=== PATIENT | female | born 1945 | race Caucasian/White ===

== ENCOUNTER 2022-05-22 16:45 | Inpatient (IN) | payer MEDICARE, OTHER ==
[~2022-05-22] VITALS: Ht 165.1 cm; Wt 72.6 kg
[2022-05-22] MEDS ORDERED: LORAZEPAM 0.5 MG TABLET PO PRN (17:30)
[2022-05-22] MEDS ORDERED: ZOLPIDEM TARTRATE 5 MG TABLET PO PRN (17:30)
[2022-05-22] MEDS ORDERED: ACETAMINOPHEN 325 MG TABLET PO PRN (17:30)
[2022-05-22] MEDS ORDERED: BLOOD SUGAR DIAGNOSTIC 1 EACH STRIP IN ONE (17:30)
[2022-05-22] MEDS ORDERED: MAGNESIUM HYDROXIDE 30 ML UDC PO PRN (17:30)
[2022-05-22] MEDS ORDERED: MAG HYDROX/AL HYDROX/SIMETH 30 ML UDC PO PRN (17:30)
--- NOTE | 2022-05-22 17:30 | NUR ---
PT HAS HX OF BREAST CANCER RIGHT (MASTECTOMY ),CERVICAL SPINE PAIN,CHICKEN POX,HTN ,LITHUANIAN MEASLES ,ARTHRITIS RADIATION THERAPY ,HYPERLIPIDEMIA ,PNEUMONIA.
--- NOTE | 2022-05-22 17:30 | NUR ---
ADMITTED THIS 76 Y/O FEMALE PATIENT ADMIT FROM [facility] , ADMITTED TO [facility] ON 5150 HOLD FOR GD , PER HOLD GRAVELY DISABLE BROUGHT INTO EMERGENCY DEPT DUE TO PSYCHIATRIC DECOMPENSATION .PT IRRITABLE ,PARANOID AND VERY DISORGANIZED HX OF SCHIZOPHRENIA IS UNABLE TO FORMULATE A PLAN FOR SELF CARE . UPON FACE TO FACE ASSESSMENT PT. IS POOR HISTORIAN, POOR INSIGHT ,POOR JUDGEMENT , EASILY EASILY AGITATED ,PREOCCUPIED WITH HER OWN THOUGHTS .PT IS LOUD AND UNCOOPERATIVE, PT STATED "I FEEL VERY DEPRESSED " ,PT BEHAVIOR PARANOID WITH SUSPICIOUS BEHAVIOR . PT. REFUSED TO SIGNS ADMISSION CONSENT PAPERS REFUSED SKIN ASSESSMENT AND REFUSED MRSA SWAB DUE TO MENTAL STATUS , BOTH MD AWARE AND NOTIFIED OF THE ADMISSION, BELONGINGS CONTRABAND WERE DONE , NURSING ASSESSMENT DONE ,PT. RIGHTS HAND BOOK GIVEN AND EXPLAIN TO PATIENT ABLE TO VERBALIZE UNDERSTANDING , MEDICATIONS GUIDE GIVEN AND EXPLAINED TO PATIENT , ENVIRONMENTAL SAFETY CHECK DONE, ENCOURAGED PT. VERBALIZED ANY FEELING CONCERN TO STAFF, ORIENT TO UNIT POLICY, NO ACUTE DISTRESS NOTED,VITAL SIGNS WNL ,BP 105/72 , P 98 T98,R 20 ,O2 SAT 97%,DENIES ANY PAIN AT THIS TIME,WILL CONTINUE TO MONITOR FOR Q15 SAFETY AND BEHAVIOR.
--- NOTE | 2022-05-22 17:30 | NUR ---
RN-CO: DR BHATTI WAS NOTIFIED AND GAVE ADMITTING ORDERS NOTED AND CARRIED OUT.
[2022-05-22] MEDS ORDERED: ERGO500093 PO (17:44)
[2022-05-22] MEDS ORDERED: ESOM40CA52 PO (17:44)
[2022-05-22] MEDS ORDERED: THIO2CAP2 PO (17:44)
[2022-05-22] MEDS ORDERED: LOSA50TA39 PO (17:44)
[2022-05-22] MEDS ORDERED: ANAS1TAB50 PO (17:44)
[2022-05-22] MEDS ORDERED: MECL-159 PO (17:44)
[2022-05-22] MEDS ORDERED: ACET-2605 PO (17:44)
[2022-05-22] MEDS ORDERED: CELE100C98 PO (17:44)
[2022-05-22] MEDS ORDERED: IBUP-2383 PO (17:44)
[2022-05-22 18:07] VITALS: BP 105/72
[2022-05-22 20:00] VITALS: BP 124/56
[2022-05-23] MEDS ORDERED: MECLIZINE HCL 25 MG TABLET PO PRN
[2022-05-23 07:17] LABS: CHOLESTEROL 247 mg/dL (<200); HDL CHOLESTEROL 69 mg/dL (40-60); LDL 145 mg/dL (0-99); TRIGLYCERIDES 209 mg/dL (30-150)
[2022-05-23 07:33] LABS: ALBUMIN 2.9 g/dL (3.4-5.0); BILIRUBIN,TOTAL 0.2 mg/dL (0.2-1.0); CALCIUM, SERUM 8.5 mg/dL (8.5-10.1); CREATININE 0.8 mg/dL (0.6-1.3); POTASSIUM 3.7 mmol/L (3.5-5.1); TOTAL PROTEIN, SERUM 5.9 g/dL (6.4-8.2)
[2022-05-23 08:00] VITALS: BP 116/69
[2022-05-23] MEDS ORDERED: IBUPROFEN 200 MG TABLET PO PRN (08:00)
[2022-05-23] MEDS: CELECOXIB 100 MG CAPSULE PO SCH ×2 (08:38→16:21)
[2022-05-23] MEDS: ANASTROZOLE 1 MG TABLET PO SCH (08:38)
[2022-05-23] MEDS: LOSARTAN POTASSIUM 50 MG TABLET PO SCH (08:38)
[2022-05-23] MEDS: PANTOPRAZOLE 40 MG TABLET.DR PO SCH (08:38)
--- NOTE | 2022-05-23 09:55 | NUR ---
BRITANY Clinical Note: Pt placed on a 5150 hold for GD. Per hold, it states that pt has been irritable and paranoid and collateral was unable to be collected. Pt has history of schizophrenia. Pt unable to care for self. Pt currently resides at home located at [facility]/[address] [place] [address]; ([phone]). Pt would want to return back home upon discharge.
--- NOTE | 2022-05-23 09:55 | NUR ---
BRITANY Initial Discharge Plan: Pt currently resides at home located at [address] [place] [address]; ([phone]). Pt would want to return back home upon discharge. BRITANY will work with the MD, treatment team, and pt to help coordinate appropriate discharge.
--- NOTE | 2022-05-23 10:00 | NUR ---
RN Notes: Received pt. asleep in bed, breathing is even and unlabored. Ate 90% for breakfast and compliant on meds. Pt. is suspicious, isolates in room and easily got irritated. Encouraged to verbalize feelings and motivated to attend group activity. Needs attended and will continue to monitor for safety.
--- NOTE | 2022-05-23 10:15 | NUR ---
SW Note: Pt did not allow this health science writer to contact her significant other Allen ([phone]).
[2022-05-23] MEDS ORDERED: THIOTHIXENE 5 MG CAPSULE PO SCH (11:00)
[2022-05-23] MEDS: OLANZAPINE 2.5 MG TABLET PO SCH ×2 (11:46→21:13)
[2022-05-23 16:00] VITALS: BP 140/67
--- NOTE | 2022-05-23 19:30 | NUR ---
GPS RN NOTE, RECEIVED PATIENT AWAKE AND IN BED, NO S/S OR COMPLAINTS OF PAIN AT THIS TIME. PATIENT IS DISPLAYING NO S/S OF APPARENT DISTRESS AT THIS TIME. PATIENT BREATHING IS UNLABORED WITH EQUAL RISE AND FALL OF THE CHEST. PATIENT IS ALERT AND ORIENTED X 3 ON ROOM AIR WITH A SPO2 98%. PATIENT IS COMPLIANT WITH MEDICATIONS, ANXIOUS, PARANOID, SUSPICIOUS, MAKES NEEDS KNOWN, AND IS COOPERATIVE. PATIENT DENIES SUICIDAL AND HOMICIDAL IDEATIONS AT THIS TIME. PATIENT ASSISTED WITH TURNING AND REPOSITIONING Q2HR AND PRN FOR COMFORT AND CIRCULATION. PATIENT HAS NO NEEDS AT THIS TIME. PATIENT EDUCATED ON THE USE OF THE CALL GREER. PATIENT BED SIDE RAILS UP X 2 FOR SAFETY. PATIENT BED IS LOCKED, LOW, WITH BED ALARM ON. WILL CONTINUE TO MONITOR THIS PATIENT Q15 MINUTES WITH THE HELP OF STAFF TO MAINTAIN SAFETY.
[2022-05-23 20:00] VITALS: BP 136/79
--- NOTE | 2022-05-23 20:27 | NUR ---
GPS RN NOTE, PATIENT HAS A COMPLAINT OF A CHRONIC COUGH AND IS REQUESTING ROBITUSSIN AT THIS TIME. PATIENT VITAL SIGNS ARE STABLE. PAGED [facility] AND INFORMED ROSA FUENTES DNP OF MY FINDINGS. ROSA FUENTES DNP ORDERED ROBITUSSIN DM 5ML PO Q6HR PRN. ALL ORDERS NOTED AND CARRIED OUT WILL CONTINUE TO MONITOR THIS PATIENT WITH THE HELP OF STAFF.
[2022-05-23] MEDS: GUAIFENESIN/D-METHORPHAN HB 5 ML UDC PO PRN (21:13)
--- NOTE | 2022-05-23 21:13 | NUR ---
GPS RN NOTE, PATIENT HAS A COMPLAINT OF A CHRONIC COUGH AND IS REQUESTING ROBITUSSIN AT THIS TIME. PATIENT VITAL SIGNS ARE STABLE. GAVE ROBITUSSIN DM 5ML 1 UNIT DOSE PO Q6HR PRN ORDERED. WILL CONTINUE TO MONITOR THIS PATIENT WITH THE HELP OF STAFF.
[2022-05-24 08:00] VITALS: BP 118/65
[2022-05-24] MEDS: ANASTROZOLE 1 MG TABLET PO SCH (08:12)
[2022-05-24] MEDS: GUAIFENESIN/D-METHORPHAN HB 5 ML UDC PO PRN ×2 (08:12→21:09)
[2022-05-24] MEDS: LOSARTAN POTASSIUM 50 MG TABLET PO SCH (08:12)
[2022-05-24] MEDS: CELECOXIB 100 MG CAPSULE PO SCH ×2 (08:12→16:13)
[2022-05-24] MEDS: PANTOPRAZOLE 40 MG TABLET.DR PO SCH (08:12)
--- NOTE | 2022-05-24 08:21 | NUR ---
Pt. seen and examined by Dr. Marin and ordered podiatry consult.
[2022-05-24] MEDS: OLANZAPINE 2.5 MG TABLET PO SCH ×2 (08:48→21:09)
[2022-05-24] MEDS: ERGOCALCIFEROL (VITAMIN D 2) 50,000 UNIT CAPSULE PO SCH (08:48)
--- NOTE | 2022-05-24 09:55 | NUR ---
RN Notes: Received pt awake in bed, responsive to staffs and suspicious. Ate 100% for breakfast, compliant on meds. Pt. seen by both psych and medical doctors. Pt. is complaining on coughing and prn med given. pt. keeps to self, needy and easily got irritated. Encouraged to verbalize feelings and motivated to attend group activity. Needs attended and will continue to monitor for safety.
--- NOTE | 2022-05-24 12:43 | NUR ---
Called Dr. Heath at [phone] for the podiatry consult. Per physician she will see pt. on Friday.
--- NOTE | 2022-05-24 14:03 | NUR ---
SW Note: Pt allowed for this service writer to contact her significant other Allen and gave his number ([phone]).
--- NOTE | 2022-05-24 14:03 | NUR ---
BRITAYN Family: BRITANY spoke with patient's significant other Allen ([phone]) and notified of admission and discussed treatment/discharge plan. He is aware and agreeable of treatment. He stated that he will be visiting pt tomorrow 05/25/2022 at the hospital.
--- NOTE | 2022-05-24 14:13 | NUR ---
SW Note: After pt speaking to her she stated that she is feeling unsafe. SW spoke with Allen ([phone]) and reassured that she is safe. Pt became paranoid and agitated towards this writer technical publications and stated "I feel scared of marriage and family social worker". SW questioned why she feels unsafe she stated that she feels unsafe near social workers and that "I was going to become a marriage and family social worker".
[2022-05-24 16:00] VITALS: BP 127/73
--- NOTE | 2022-05-24 19:30 | NUR ---
GPS RN NOTE, RECEIVED PATIENT AWAKE AND IN BED, NO S/S OR COMPLAINTS OF PAIN AT THIS TIME. PATIENT IS DISPLAYING NO S/S OF APPARENT DISTRESS AT THIS TIME. PATIENT BREATHING IS UNLABORED WITH EQUAL RISE AND FALL OF THE CHEST. PATIENT IS ALERT AND ORIENTED X 3 ON ROOM AIR WITH A SPO2 96%. PATIENT IS COMPLIANT WITH MEDICATIONS, ANXIOUS, PARANOID, LABILE, DELUSIONAL, CRYING SPELLS, MAKES NEEDS KNOWN, AND IS COOPERATIVE. PATIENT DENIES SUICIDAL AND HOMICIDAL IDEATIONS AT THIS TIME. PATIENT ASSISTED WITH TURNING AND REPOSITIONING Q2HR AND PRN FOR COMFORT AND CIRCULATION. PATIENT HAS NO NEEDS AT THIS TIME. PATIENT EDUCATED ON THE USE OF THE CALL GREER. PATIENT BED SIDE RAILS UP X 2 FOR SAFETY. PATIENT BED IS LOCKED, LOW, WITH BED ALARM ON. WILL CONTINUE TO MONITOR THIS PATIENT Q15 MINUTES WITH THE HELP OF STAFF TO MAINTAIN SAFETY.
[2022-05-24 20:41] VITALS: BP 144/74
[2022-05-25 08:00] VITALS: BP 144/85
[2022-05-25] MEDS: ANASTROZOLE 1 MG TABLET PO SCH (08:11)
[2022-05-25] MEDS: PANTOPRAZOLE 40 MG TABLET.DR PO SCH (08:11)
[2022-05-25] MEDS: LOSARTAN POTASSIUM 50 MG TABLET PO SCH (08:11)
[2022-05-25] MEDS: CELECOXIB 100 MG CAPSULE PO SCH ×2 (08:11→16:14)
[2022-05-25] MEDS: OLANZAPINE 2.5 MG TABLET PO SCH ×2 (08:11→21:31)
[2022-05-25] MEDS: GUAIFENESIN/D-METHORPHAN HB 5 ML UDC PO PRN ×2 (11:10→20:06)
[2022-05-25 16:00] VITALS: BP 132/72
--- NOTE | 2022-05-25 19:30 | NUR ---
GPS RN NOTE, RECEIVED PATIENT AWAKE AND IN BED, NO S/S OR COMPLAINTS OF PAIN AT THIS TIME. PATIENT IS DISPLAYING NO S/S OF APPARENT DISTRESS AT THIS TIME. PATIENT BREATHING IS UNLABORED WITH EQUAL RISE AND FALL OF THE CHEST. PATIENT IS ALERT AND ORIENTED X 3 ON ROOM AIR WITH A SPO2 95%. PATIENT IS COMPLIANT WITH MEDICATIONS, ANXIOUS, PARANOID, LABILE, DELUSIONAL, NEEDY, CRYING SPELLS, MAKES NEEDS KNOWN, AND IS COOPERATIVE. PATIENT DENIES SUICIDAL AND HOMICIDAL IDEATIONS AT THIS TIME. PATIENT ASSISTED WITH TURNING AND REPOSITIONING Q2HR AND PRN FOR COMFORT AND CIRCULATION. PATIENT HAS NO NEEDS AT THIS TIME. PATIENT EDUCATED ON THE USE OF THE CALL GREER. PATIENT BED SIDE RAILS UP X 2 FOR SAFETY. PATIENT BED IS LOCKED, LOW, WITH BED ALARM ON. WILL CONTINUE TO MONITOR THIS PATIENT Q15 MINUTES WITH THE HELP OF STAFF TO MAINTAIN SAFETY.
[2022-05-25 20:19] VITALS: BP_SYST 134; BP_SYST 149; BP_DIAS 68; BP_DIAS 70
[2022-05-26] MEDS: GUAIFENESIN/D-METHORPHAN HB 5 ML UDC PO PRN ×2 (06:29→22:22)
[2022-05-26] MEDS: PANTOPRAZOLE 40 MG TABLET.DR PO SCH (07:17)
[2022-05-26 08:00] VITALS: BP 132/77
[2022-05-26] MEDS: CELECOXIB 100 MG CAPSULE PO SCH ×2 (08:08→17:05)
[2022-05-26] MEDS: OLANZAPINE 2.5 MG TABLET PO SCH ×2 (08:08→21:05)
[2022-05-26] MEDS: ANASTROZOLE 1 MG TABLET PO SCH (08:08)
[2022-05-26] MEDS: LOSARTAN POTASSIUM 50 MG TABLET PO SCH (08:08)
[2022-05-26 16:00] VITALS: BP 112/69
[2022-05-26 20:00] VITALS: BP 146/86
[2022-05-26 20:39] VITALS: BP 146/86
--- NOTE | 2022-05-26 22:34 | NUR ---
RN notes Pt is complaining of cough and requesting cough medicine. administered robitussin 5ml/po/prn per Pt's request. Will continue to monitor.
[2022-05-27] MEDS: PANTOPRAZOLE 40 MG TABLET.DR PO SCH (07:33)
[2022-05-27 08:00] VITALS: BP 135/69
[2022-05-27] MEDS: LOSARTAN POTASSIUM 50 MG TABLET PO SCH (08:03)
[2022-05-27] MEDS: OLANZAPINE 2.5 MG TABLET PO SCH ×2 (08:03→21:02)
[2022-05-27] MEDS: CELECOXIB 100 MG CAPSULE PO SCH ×2 (08:04→17:28)
[2022-05-27] MEDS: ANASTROZOLE 1 MG TABLET PO SCH (08:04)
--- NOTE | 2022-05-27 09:50 | NUR ---
Court Notification: Allen ([phone]) notified of pt's 5250 hearing today. BRITANY left a voicemail.
--- NOTE | 2022-05-27 11:20 | NUR ---
Court Hearing: Patient's court hearing for 9380 was today and it was upheld for GD.
--- NOTE | 2022-05-27 11:24 | NUR ---
SW Family: SW left a voicemail for pt's significant other Allen ([phone]). SW left a detailed voicemail that the court was today and it was upheld for GD.
--- NOTE | 2022-05-27 13:09 | NUR ---
RN-CO: Patient is alert oriented x 3-4,denies suicidal and homicidal ideation. She is easily irritated and has pressured speech otherwise she is cooperative to care.
--- NOTE | 2022-05-27 13:21 | NUR ---
BRITANY Coordination of Care: Patient (Psychiatrist) Dr. [place] [facility] [address] [place] [address]; ([phone]) and spoke with Doctor Gore who stated that the pt needs to call and make the appointment. Addendum: 05/27/22 at 1322 by BRITANY GLASER Patient will follow up with (Psychiatrist) Dr. [place] [facility] [address] [place] [address]; ([phone]) and spoke with Doctor Gore who stated that the pt needs to call and make the appointment.
[2022-05-27 16:00] VITALS: BP 138/69
--- NOTE | 2022-05-27 19:39 | NUR ---
GPS RN OPENING NOTES: RECEIVED PATIENT IN ROOM CHATTING ON THE PHONE. NO S/S OF DISTRESS. RESPIRATION EVEN AND UNLABORED WITH EQUAL RISE AND FALL OF THE CHEST, ON ROOM AIR. OFFERED FLUID AND SNACKS TOLERATED. BED IN LOWEST POSITION AND LOCKED, SIDE RAILS UP X2 FOR SAFETY. WILL CONTINUE TO MONITOR Q15 FOR MOOD, SAFETY AND BEHAVIOR.
[2022-05-27 20:21] VITALS: BP 121/69
[2022-05-28] MEDS: PANTOPRAZOLE 40 MG TABLET.DR PO SCH (07:33)
[2022-05-28 08:00] VITALS: BP 127/70
[2022-05-28] MEDS: ANASTROZOLE 1 MG TABLET PO SCH (08:00)
[2022-05-28] MEDS: LOSARTAN POTASSIUM 50 MG TABLET PO SCH (08:00)
[2022-05-28] MEDS: OLANZAPINE 2.5 MG TABLET PO SCH (08:00)
[2022-05-28] MEDS: CELECOXIB 100 MG CAPSULE PO SCH ×2 (08:00→16:13)
[2022-05-28 16:00] VITALS: BP 135/85
[2022-05-28 19:54] VITALS: BP 109/56
--- NOTE | 2022-05-28 19:55 | NUR ---
GPS RN OPENING NOTES: RECEIVED PATIENT IN ROOM, AWAKE, A/O X3. BLUNTED AFFECT, LABILE, ANXIOUS, EASILY IRRITABLE. DENIES SI, HI AND PAIN AT THIS TIME. NO S/S OF DISTRESS. RESPIRATION EVEN AND UNLABORED WITH EQUAL RISE AND FALL OF THE CHEST, ON ROOM AIR. OFFERED FLUID AND SNACKS TOLERATED. BED IN LOWEST POSITION AND LOCKED, SIDE RAILS UP X2 FOR SAFETY. WILL CONTINUE TO MONITOR Q15 FOR MOOD, SAFETY AND BEHAVIOR.
[2022-05-28] MEDS: OLANZAPINE 5 MG TABLET PO SCH (21:22)
--- NOTE | 2022-05-29 06:49 | NUR ---
GPS RN CLOSING NOTES: PATIENT IS AWAKE, A/O X3 AND AMBULATING IN HALLWAY. PATIENT SLEPT 7HRS THIS SHIFT. PATIENT HAS NO S/S OF DISTRESS. RESPIRATION EVEN AND UNLABORED WITH EQUAL RISE AND FALL OF THE CHEST, ON ROOM AIR. ALL PATIENT CARE NEEDS HAVE BEEN MET ANTICIPATED. WILL CONTINUE TO MONITOR Q15 FOR SAFETY, MOOD AND BEHAVIOR AND ENDORSE TO AM SHIFT.
[2022-05-29] MEDS: PANTOPRAZOLE 40 MG TABLET.DR PO SCH (07:43)
--- NOTE | 2022-05-29 07:47 | NUR ---
RN Opening Notes RECEIVED PT IN BED SPEAKING WITH MD, COMPLIANT COOPERATIVE, APPEARED TO BE INTERESTED IN MEDICATIONS AND PLAN FOR HER NEEDS, ABLE TO MAKE NEEDS KNOWN.
[2022-05-29 08:00] VITALS: BP 127/76
[2022-05-29] MEDS: OLANZAPINE 5 MG TABLET PO SCH ×2 (09:17→21:00)
[2022-05-29] MEDS: CELECOXIB 100 MG CAPSULE PO SCH ×2 (09:17→17:30)
[2022-05-29] MEDS: ANASTROZOLE 1 MG TABLET PO SCH (09:18)
--- NOTE | 2022-05-29 09:22 | NUR ---
BRIATNY Family Contact: BRITANY attempted to contact pt's significant other Allen ([phone]) to confirm dc.
[2022-05-29] MEDS: LOSARTAN POTASSIUM 50 MG TABLET PO SCH (10:22)
--- NOTE | 2022-05-29 10:22 | NUR ---
BRITANY Family Contact: BRITANY contacted pt's significant other Allen ([phone]) and he confirmed that he will continuous pickling line pickler pt on 05/31 at 1PM.
[2022-05-29 16:00] VITALS: BP 154/87
--- NOTE | 2022-05-29 18:52 | NUR ---
RN NOTES PT C/O VARIOUS THINGS, NEEDING TO USE PHONE, NEEDING TO GO HOME, STATING HER MEDS ARE TOO STRONG THEN HER MEDS ARE NOT ENOUGH AND MAKING HER TIRED. PT REDIRECTED AND EXPLAINED MEDICATION ORDERS BUT DID NOT UNDERSTAND ALL THE INFORMATION.
[2022-05-29 20:19] VITALS: BP 125/89
[2022-05-30] MEDS: PANTOPRAZOLE 40 MG TABLET.DR PO SCH ×2 (06:36→08:32)
[2022-05-30 08:00] VITALS: BP 145/76
[2022-05-30] MEDS: CELECOXIB 100 MG CAPSULE PO SCH ×2 (08:31→16:12)
[2022-05-30] MEDS: LOSARTAN POTASSIUM 50 MG TABLET PO SCH (08:31)
[2022-05-30] MEDS: ANASTROZOLE 1 MG TABLET PO SCH (08:32)
[2022-05-30] MEDS: OLANZAPINE 5 MG TABLET PO SCH (09:03)
[2022-05-30 16:00] VITALS: BP 127/73
[2022-05-30 20:00] VITALS: BP 136/72
--- NOTE | 2022-05-30 20:10 | NUR ---
RN NOTES: RECEIVED PATIENT IN BED AAOX3,ON RM AIR ISABELL WELL NO SIGN SOB/DISTRESS NOTED.NO COMPLAINE OF PAIN/DISCOMFORT AT THIS TIME. BLUNTED AFFECT, LABILE, ANXIOUS,OFFERED FLUID AND SNACKS TOLERATED. BED IN LOWEST POSITION AND LOCKED, SIDE RAILS UP X2 FOR SAFETY. WILL CONTINUE TO MONITOR Q15 FOR MOOD, SAFETY AND BEHAVIOR.
[2022-05-30] MEDS ORDERED: OLANZAPINE 10 MG TABLET PO SCH (22:00)
--- NOTE | 2022-05-31 07:28 | NUR ---
SW Discharge Plan: Patient will return back home located at [address] [place] [address]; ([phone]). Pts Allen ([phone]) will diamond picker pt at 1PM. Patient is alert and oriented x3. Patient is happy to be going back home. Patient denies suicidal or homicidal ideation. Patient denies visual/auditory hallucinations. Patient will follow up (Shoulder Joiner) Dr. Steel located at [address] [place] [address]; ([phone]). Patient will follow up with (Psychiatrist) Dr. Gore located at [facility] [address] [place] [address]; ([phone]) and spoke with Doctor Gore who stated that the pt needs to call and make the appointment. Pt presents with euthymic mood and congruent affect.
[2022-05-31 08:00] VITALS: BP 136/77
[2022-05-31] MEDS: ANASTROZOLE 1 MG TABLET PO SCH (08:26)
[2022-05-31] MEDS: CELECOXIB 100 MG CAPSULE PO SCH (08:26)
[2022-05-31 08:28] VITALS: BP 136/77
[2022-05-31] MEDS: OLANZAPINE 5 MG TABLET PO SCH (08:28)
[2022-05-31] MEDS: ERGOCALCIFEROL (VITAMIN D 2) 50,000 UNIT CAPSULE PO SCH (08:28)
[2022-05-31] MEDS: LOSARTAN POTASSIUM 50 MG TABLET PO SCH (08:28)
[2022-05-31] MEDS ORDERED: PANTOPRAZOLE 40 MG TABLET.DR PO SCH (09:00)
--- NOTE | 2022-05-31 12:23 | NUR ---
DIFFUSION FURNACE OPERATOR NOTES PATIENT DISCHARGED HOME PICKED UP BY [facility] IN STABLE CONDITION. DENIES ANY SUICIDAL OR HOMICIDAL IDEATION. ALL BELONGINGS AND VALUABLES ACCOUNTED FOR. ARM NAMEBAND REMOVED. EXIT CARE FOLDER GIVEN TO , DISCHARGE INSTRUCTIONS PROVIDED. PATIENT LEFT UNIT @1220, IN GOOD SPIRITS. PATIENT ACCOMPANIED TO THE LOBBY VIA W/C, PICKED UP BY VIA PRIVATE CAR. CN AWARE OF DISCHARGE.
== END 2022-05-31 12:23 | disposition home or self-care (01) | DRG 885 ==
LOC: GPS 17:15
PROVIDERS: ADMIT Psychiatry & Neurology Psychiatry; ATTEND Internal Medicine
DX: F20.0 Paranoid schizophrenia (principal); E44.0 Moderate protein-calorie malnutrition; K21.9 Gastro-esophageal reflux disease without esophagitis; Z88.1 Allergy status to other antibiotic agents; Z88.0 Allergy status to penicillin; F32.A Depression, unspecified; M62.81 Muscle weakness (generalized); F41.9 Anxiety disorder, unspecified; G31.84 Mild cognitive impairment of uncertain or unknown etiology; Z85.3 Personal history of malignant neoplasm of breast; Z91.81 History of falling; Z79.899 Other long term (current) drug therapy
CPT/HCPCS: 36415; 80053-TC; 80061-TC